=== PATIENT | male | born 1965 | race Caucasian/White ===

== ENCOUNTER 2016-08-22 14:24 | Inpatient (IN) | payer BC ==
--- NOTE | 2016-08-22 14:32 | EDPHY ---
H & P Stated Complaint: Panic Attack, "can't do anything anymore" Time Seen by Provider: 08/22/16 14:31 - Personal History Current Tetanus Diphtheria and Acellular Pertussis (TDAP): Yes - Medical/Surgical History Hx Asthma: No Hx Chronic Respiratory Disease: No Hx Diabetes: No Hx Cardiac Disease: No Hx Renal Disease: No Hx Cirrhosis: No Hx Alcoholism: No Hx HIV/AIDS: No Hx Splenectomy or Spleen Trauma: No Other PMH: Anxiety - Social History Smoking Status: Never smoked Constitutional: Initial Vital Signs Temperature (C) 37.4 C 08/22/16 14:27 Heart Rate 111 H 08/22/16 14:27 Respiratory Rate 18 08/22/16 14:27 Blood Pressure 156/105 H 08/22/16 14:27 O2 Sat (%) 98 08/22/16 14:27 O2 Delivery Mode Room Air Allergies/Adverse Reactions: No Known Allergies Allergy (Unverified 06/11/14 18:02) Home Medications: Medication Instructions Recorded NK [No Known Home Meds] 06/11/14 Medical Decision Making ED Course/Re-evaluation: CHIEF COMPLAINT: "I just suddenly lost it this afternoon" HISTORY OF PRESENT ILLNESS: The patient is a 50 y/o male, with a history of anxiety, arriving with his family complaining of worsening anxiety. He didn't sleep last night and went on a walk this morning and describes throwing wood "and it felt bloody marvelous." He says he then began hyperventilating and then later began crying uncontrollably. He reports he is under stress at work and recently had an argument with his that was "traumatic." He has previously had these symptoms when his insomnia is worse than normal. He is otherwise unable to provide a clear history secondary to his hysteria. REVIEW OF SYSTEMS: Difficult to determine due to patient's hysteria. PHYSICAL EXAM: HR, BP, O2 Sat, RR. Temp noted General Appearance: Alert, well hydrated, appropriate, and upset, tearful. Head: Atraumatic without scalp tenderness or obvious injury Eyes: Pupils equal, round, reactive to light and accommodation, EOMI, no trauma , no injection. Nose: Atraumatic, no rhinorrhea, clear. Throat: mucus membranes moist. Neck: Supple, nontender, no lymphadenopathy. Respiratory: No retractions, no distress, no wheezes, and no accessory muscle use. Lungs are clear to auscultation bilaterally. Cardiovascular: Tachycardic regular rate and rhythm, no murmurs, rubs, or gallops. Good capillary refill all extremities. Gastrointestinal: Abdomen is soft, nontender, non-distended, no masses, no rebound, no guarding, no peritoneal signs. Musculoskeletal: Normal active ROM of all extremities, atraumatic. Neurological: Alert, appropriate, and interactive. Nonfocal neuro exam. Skin: No rashes, good turgor, no nodules on palpation. Past medical history: Insomnia, anxiety, depression - Paxil, Lorazepam Past surgical history: denies Family history: Father of Alzheimer's Social history: Family at bedside. Employed. DIFFERENTIAL DIAGNOSIS: The differential diagnosis for the patient's anxiety included but was not limited to panic attack, anxiety, depression, insomnia, psychiatric diagnoses. MEDICAL DECISION MAKING: This is a 50 y/o male with a history of anxiety and insomnia who presents tearful and anxious reporting he had a mental break today. He reports his job is stressful and he had a recent argument with his in the setting of worsening insomnia. Further history is difficult to obtain secondary to his hysteria. Plan for standard psychiatric labs and psychiatric team evaluation. Mallory from [facility] assessed patient. She states in addition to the insomnia and stress, he is having memory issues and his father of Alzheimer 's. She reports he also endorses suicidal ideations and she recommends inpatient admission. - Data Points Laboratory Results: Laboratory Results 08/22/16 15:02 08/22/16 15:02 08/22/16 08/22/16 08/22/16 15:13 15:02 15:02 WBC 10.56 10^3/uL H 10^3/uL (3.80-9.50) RBC 5.43 10^6/uL 10^6/uL (4.40-6.38) Hgb 15.2 g/dL g/dL (13.7-17.5) Hct 44.0 % % (40.0-51.0) MCV 81.0 fL L fL (81.5-99.8) MCH 28.0 pg pg (27.9-34.1) MCHC 34.5 g/dL g/dL (32.4-36.7) RDW 13.0 % % (11.5-15.2) Plt Count 235 10^3/uL 10^3/uL (150-400) MPV 12.1 fL H fL (8.7-11.7) Neut % (Auto) 77.9 % H % (39.3-74.2) Lymph % (Auto) 13.7 % L % (15.0-45.0) Bureau % (Auto) 7.2 % % (4.5-13.0) Eos % (Auto) 0.4 % L % (0.6-7.6) Baso % (Auto) 0.5 % % (0.3-1.7) Nucleat RBC Rel Count 0.0 % % (0.0-0.2) Absolute Neuts (auto) 8.23 10^3/uL H 10^3/uL (1.70-6.50) Absolute Lymphs (auto) 1.45 10^3/uL 10^3/uL (1.00-3.00) Absolute Monos (auto) 0.76 10^3/uL 10^3/uL (0.30-0.80) Absolute Eos (auto) 0.04 10^3/uL 10^3/uL (0.03-0.40) Absolute Basos (auto) 0.05 10^3/uL 10^3/uL (0.02-0.10) Absolute Nucleated RBC 0.00 10^3/uL 10^3/uL (0-0.01) Immature Gran % 0.3 % % (0.0-1.1) Immature Gran # 0.03 10^3/uL 10^3/uL (0.00-0.10) Sodium 138 mEq/L mEq/L (134-144) Potassium 3.6 mEq/L mEq/L (3.5-5.2) Chloride 106 mEq/L mEq/L (97-110) Carbon Dioxide 16 mEq/l L mEq/l (22-31) Anion Gap 16 mEq/L mEq/L (8-16) BUN 16 mg/dL mg/dL (7-23) Creatinine 0.8 mg/dL mg/dL (0.7-1.3) Estimated GFR > 60 Glucose 115 mg/dL H mg/dL (70-100) Calcium 10.5 mg/dL H mg/dL (8.5-10.4) Salicylates < 1.0 mg/dL L mg/dL (2.0-20.0) Urine Opiates Screen NEGATIVE (NEGATIVE) Acetaminophen < 10 mcg/mL L mcg/mL (10.0-30.0) Urine Barbiturates NEGATIVE (NEGATIVE) Ur Phencyclidine Scrn NEGATIVE (NEGATIVE) Ur Amphetamine Screen NEGATIVE (NEGATIVE) U Benzodiazepines Scrn NEGATIVE (NEGATIVE) Urine Cocaine Screen NEGATIVE (NEGATIVE) U Marijuana (THC) Screen NEGATIVE (NEGATIVE) Ethyl Alcohol < 10 mg/dL mg/dL (0-10) Departure - Departure Clinical Impression: Panic attack Depression Qualifiers: Depression Type: other depression Qualified Code(s): F32.89 - Other specified depressive episodes Condition: Fair Referrals: RIGO GATES [Primary Care Provider] - As per Instructions Report Scribed for: Luis Graves Report Scribed by: Arianne Jones Date of Report: 08/22/16 Time of Report: 14:51
[2016-08-22 15:14] LABS: % IMMATURE GRANULYOCYTES 0.3 % (0.0-1.1); ABSOLUTE IMMATURE GRANULOCYTES 0.03 10^3/uL (0.00-0.10); ADD DIFF? NO; ADD MORPH? NO; ADD SCAN? NO; ATYPICAL LYMPHOCYTE FLAG 10 (0-99); FRAGMENT RBC FLAG 0 (0-99); HEMOGLOBIN 15.2 g/dL (13.7-17.5); LEFT SHIFT FLG 0 (0-99); LIPEMIA HEMOLYSIS FLAG 90 (0-99); MEAN CELL HEMOGLOBIN CONCENTR. 34.5 g/dL (32.4-36.7); MEAN PLATELET VOLUME 12.1 fL (8.7-11.7); PLATELET CLUMPS FLAG 0 (0-99); PLATELET COUNT 235 10^3/uL (150-400); RED BLOOD CELL COUNT 5.43 10^6/uL (4.40-6.38)
[2016-08-22 15:29] LABS: ANION GAP 16 mEq/L (8-16); CALCIUM 10.5 mg/dL (8.5-10.4); CARBON DIOXIDE 16 mEq/l (22-31); CHLORIDE 106 mEq/L (97-110); CREATININE 0.8 mg/dL (0.7-1.3); ETHANOL SERUM < 10 mg/dL (0-10); GLOMERULAR FILTRATION RATE > 60; GLUCOSE 115 mg/dL (70-100); POTASSIUM 3.6 mEq/L (3.5-5.2); SALICYLATE < 1.0 mg/dL (2.0-20.0); SODIUM 138 mEq/L (134-144)
[2016-08-22] MEDS ORDERED: LORazepam 1 MG TAB PO ONE (16:27)
[2016-08-22] MEDS ORDERED: NICOTINE POLACRILEX 2 MG GUM B PRN (22:17)
[2016-08-22] MEDS ORDERED: MAGNESIUM HYDROXIDE 30 ML UDCUP PO PRN (22:17)
[2016-08-22] MEDS ORDERED: MAG HYDROX/AL HYDROX/SIMETH 30 ML UDCUP PO PRN (22:17)
[2016-08-22] MEDS ORDERED: LORazepam 0.5 MG TAB PO PRN (22:17)
[2016-08-22] MEDS ORDERED: ACETAMINOPHEN 325 MG TAB PO PRN (22:17)
[2016-08-22 22:36] VITALS: O2SAT 95
--- NOTE | 2016-08-23 08:10 | PDGENHP ---
History and Physical History and Physical: CC: Anxiety attack History: This patient with a long hx of anxiety/panic disorder and depression has had increased work stress and relationship issues recently. Last evening he had a severe panic episode that did not settle, leading to a visit to ER and now admission to [facility]. He has had previous similar episodes but this one was perhaps his worst. Has been on antidepressant for around [address], infrequent low volume EtoH. Has a daughter with anxiety disorder as well He does exercise frequently PMH: Panic disorder Anxiety disorder Depression ROS: no other physical symptoms on a 10 system review Social , lives with no tobacco, drjugs or Etoh Vitals: Initial pulse was rapin on arrival to ER but normal since then no fever, otherwise nl Exam: alert oriented relaxed at present no tremor skin warm dry no rash no adenopathy no goiter resps easy lungs clear heart regular abd nl no edema joints nl no bleeding or bruising speech, language, motor, gait all nl DIAGNOSES: 1- PANIC/ANXIETY ATTACK w history of same 2. DEPRESSION on medication RECOMMENDATIONS: -Check TSH and hormone levels, particularly since he had tachycardia at presentation -no other medical recommendations at present; call if furhter help needed.
[2016-08-23] MEDS ORDERED: PARoxetine HCL 20 MG TAB PO SCH (09:00)
[2016-08-23] MEDS: PRAVASTATIN SODIUM 40 MG TAB PO SCH (09:27)
[2016-08-23] MEDS: BENAZEPRIL HCL 20 MG TAB PO SCH (09:27)
--- NOTE | 2016-08-23 13:50 | BAPA ---
[f rep st] ADMISSION PSYCHIATRIC ASSESSMENT DATE OF SERVICE: 08/23/2016 CHIEF COMPLAINT: "I just fell apart." HISTORY OF PRESENT ILLNESS: The patient is a 50-year-old male with a history of depressio n and anxiety dating back to 1995. He states that he has had episodic periods where he will suddenl y become overwhelmed, typically by social circumstances. In 1995, he was going through divorce and a stated that he became extremely emotional, crying, anxious, and unable to function. He saw a psyc hiatrist at that time and was started on Serzone. He states that this did not agree with him, thoug h he cannot remember what happened, and he was switched to Paxil. He felt calmer with Paxil and has taken it regularly to this state. He notes, however, that over the last several years, he has been having more episodes of this decompensation of anxiety. In the past 4 months, he has had 3 such ep isodes, which is very unusual for him as he believes he has only had about 12 total episodes in 22 y ears. Recently, he states that he was having some degree of conflict with his and that she gerardo d him she needed some time to herself. She wanted to go for 3 or 4 days out of town where she could relax. He was very supportive of this, but at the same time states that he began into a familiar p attern of excessive worry and catastrophizing. He states that he was before and , a nd was afraid that his was going to leave him. He believed that these thoughts were irrational , but they continued to bother him. His sleep began to erode, as is also a familiar pattern with mi dcycle awakening and excessive REM intrusion. He also then began awakening between 4:00 and 5:00 a. m. and being unable to go to sleep. His mood deteriorated, and he felt subjectively depressed and b annalise having thoughts of suicide. He states "I wouldn't actually kill myself. I just believe people would be better off without me or I would be better off if I was ." On the day of admission, janelle tapia states that he had a particularly bad morning, was very anxious and began shaking. He went outsid e, took a piece of firewood and was beating on the pile of firewood, but this did not make him feel better. He then told his neighbor, who drove him and his daughter to the emergency department. He states on the drive to the emergency department, he sobbed continuously. While this is unusual for him, he states he felt better. In the emergency department, he described to the attending ER physic saray and to the [facility] staff that he was feeling like he was falling apart and that he was not in contro l of his mind. He stated that he also was having thoughts of suicide. He was placed on an M1 hold and admitted for further evaluation. Today, he states he does feel better, though he is very worrie d that this pattern is escalating and that he believes his underlying anxiety is worsening for reaso ns he cannot understand. His biggest concern at this time is the ongoing anxiety and his vulnerabil ity to these attacks. PAST PSYCHIATRIC HISTORY: The patient has taken Paxil for 22 years. Before that, he briefly took S erzone which he states was ineffective and had some negative affects. He saw Dr. Carvalho in the [facility], but has not seen him for 2 years. He is not currently in any active therapies of any kind. His primary care physician prescribes his Paxil, as well as lorazepam or diazepam as needed to help with his sleep. He also prescribed some Ambien, which he took last week with minimal benefit. The cassie ent has never had a suicide attempt or psychiatric hospitalization. ALLERGIES: No known medical allergies. CURRENT MEDICATIONS: Include Paxil 40 mg daily, amlodipine 10 mg daily, Lotensin 20 mg daily, and l ovastatin 40 mg daily. PAST MEDICAL HISTORY: Significant for obstructive sleep apnea, for which he wears a dental applianc e, hypertension, and hypertriglyceridemia. SOCIAL HISTORY: The patient has been for 8 years. This is his second marriage. They have twin 8-year-old children who are male and female fraternal twins. 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 He is originally from [place] and has been in the [place] for over 20 years. He enjoys cycling, hiking, and spending time with his family. There are no substance use issues not ed. There are no other acute financial or legal stresses noted. SUBSTANCE ABUSE HISTORY: The patient does not use substances. FAMILY HISTORY: The patient has 3 sisters who are all treated for depression and anxiety. ADMISSION LABORATORY: CBC shows a white count of 10.56, with neutrophils of 77.9%. Serum chemistri es show a nonfasting glucose of 115 and calcium of 10.5. TSH is normal at 2.3. Free T4 is normal a t 1.75, and free T3 is normal at 4.51. Urine drug screen is negative for all substances. Alcohol i s less than detectable. MENTAL STATUS EXAMINATION: Reveals a healthy-appearing, adequately groomed male. He is p leasant and cooperative, and interacts appropriately with the examiner. His affect is somewhat cons tricted and anxious, though appropriate and stable. His mood was described as "depressed and anxiou s." His thought process is linear and goal-directed. His thought content reveals no evidence of ps ychosis. He is alert and oriented to person, place, time, and situation, and his sensorium is clear . He currently denies any thoughts of suicide, stating that he had the thoughts that were "based in my deepest despair." The patient's intellect appears to be above average, as evidenced by his educ ational and occupational history, his fund of knowledge, and vocabulary. His insight and judgment a ppear to be good. IMPRESSION: Anxiety disorder, not otherwise specified, with characteristics of social phobia, obses sive-compulsive anxiety, panic, and generalized anxiety. Depressive disorder, not otherwise specifi ed, possibly attendant to the anxiety disorder. Marital conflict. Work stress. Recurrent illness. The patient is a 50-year-old male with a long-standing sensitivity to stress expressed as intermittent episodes of feeling overwhelmed and having intense anxiety. This is further characteri zed by intense REM and midcycle sleep intrusion. He has treated it effectively over time with the P axil as the baseline therapy and a benzodiazepine when he gets into a cycle to stabilize sleep to pr event further decompensation. It appears that the Paxil has been less effective over the last year or more, and this would not be unheard of given that he has had 22 years of continuous benefit witho ut any burnout. I have discussed with him potential options for ongoing treatment. He is agreeable to switching to citalopram starting tomorrow and using clonazepam as a REM suppressant on an interm ittent basis. The risks, benefits, and alternatives of these therapies were discussed with him, and he agrees to proceed. ESTIMATED LENGTH OF STAY: 2-3 days. /[id number]/MODL
[2016-08-23] MEDS ORDERED: clonazePAM 0.5 MG TAB PO SCH (21:00)
[2016-08-24 06:20] VITALS: BP 151/96; PULSE 85; RESP 16; TEMP 98.2
[2016-08-24] MEDS: PRAVASTATIN SODIUM 40 MG TAB PO SCH (08:14)
[2016-08-24] MEDS: BENAZEPRIL HCL 20 MG TAB PO SCH (08:14)
[2016-08-24] MEDS ORDERED: CITALOPRAM 20 MG TAB PO SCH (09:00)
--- NOTE | 2016-08-27 14:08 | BDS ---
[f rep st] BEHAVIORAL HEALTH DISCHARGE SUMMARY REASON FOR ADMISSION: Patient is a 50-year-old, male, with a history of depression and an xiety for the past 20 years. He states this was typically under good control, taking Paxil 40 mg, b ut that he has noticed it being less effective over the last several years. Specifically, over the last several months, he has had at least 3 episodes of severe anxiety that have emerged with rather minor inciting factors. On the date of this admission, he had a discussion with his who left t own to have some time alone, and he had catastrophic fears that she was going to leave him. This le d to uncontrollable crying and severe anxiety, and he came to the emergency department. They were u nable to console him and felt like he was a danger to himself because of some suicidal thoughts he w as having and he was [facility] for further evaluatio n and treatment. A full description of the events preceding admission can be found in his admission history dated 08/23/2016. ADMITTING DIAGNOSES: Anxiety disorder, not otherwise specified, with characteristics of social phob ia, obsessive-compulsive anxiety, panic and generalized anxiety, depressive disorder, not otherwise specified, possibly attendant to the anxiety disorder, marital conflict, work stress and recurrent i llness. ADMITTING PHYSICAL EXAMINATION: Performed by Dr. Cyrus Cohen, showed no acute physical findings. ADMISSION LABORATORY: CBC showed a white count of 10.56 with neutrophil percentage up at 77.9%. Se rum chemistries showed no significant abnormalities. Urine drug screen was negative for all substan ginna. Alcohol is less than detectable. HOSPITAL COURSE: Patient was admitted to the behavior health services inpatient unit on an M1 hold. I saw him on the first morning of his admission and he was pleasant, cooperative and engaging. He states that he felt much better, having just been in the hospital and was interested in looking at his medication regimen, as he believes it was not working. He had been on the Paxil since 1995 and stated that it had typically been affective and he had only had maybe 10 episodes of anxiety over th e next 20 years. He stated, however, that since April of 2016, he has had 3 major attacks and fe els like he is on the verge of having attacks all the time. I discussed with him the possibility th at the Paxil was ineffective due to the serotonin burnout syndrome and that a switch to an alternati ve SSRI would possibly benefit him. We discussed the options and he agreed to switch to Celexa, whi ch was started at 40 mg in a direct crossover. He tolerated this well with no side effects and no e vidence of withdrawal over the brief monitoring. The patient was otherwise engaged in individual, group, and milieu psychotherapies and participated actively in all of these. He repeatedly disavowed any thoughts of suicide, stating that he was just feeling overwhelmed and had no intention to harm himself. He requested discharge on the second day of admission, and I felt like he was stable and appropriate to leave. He had a previous relat ionship with Dr. Carvalho and stated that he had called him to arrange an appointment prior to coming to the hospital. CONDITION ON DISCHARGE: Stable. The patient's affect was much brighter, calmer, and he is having n o thoughts of suicide. He was forward thinking and hopeful and stated that he felt relieved by the fact that we had a plan. DISCHARGE MEDICATIONS: Citalopram 40 mg daily, lovastatin 40 mg daily, Norvasc 10 mg daily, Lotensi n 20 mg daily, clonazepam 0.5 mg at bedtime. DISPOSITION: Patient left the hospital of his own recognizance to return to his home. FOLLOWUP: With Dr. Carvalho to be scheduled by the patient on the day after discharge, as it is a Tracy nday. LEGAL COURSE: The patient was discharged prior to the expiration of his M1 hold. /[id number]/MODL
== END 2016-08-24 13:20 | disposition home or self-care (01) | DRG 880 ==
LOC: BBEH 22:03
PROVIDERS: ADMIT Psychiatry & Neurology Psychiatry; ATTEND Psychiatry & Neurology Psychiatry
DX: F41.0 Panic disorder [episodic paroxysmal anxiety] (principal); G47.00 Insomnia, unspecified; F32.9 Major depressive disorder, single episode, unspecified; G47.33 Obstructive sleep apnea (adult) (pediatric)
CPT/HCPCS: 80305; 84481-90; G0480

== ENCOUNTER 2016-11-01 09:11 | Inpatient (IN) | payer BC ==
--- NOTE | 2016-11-01 10:03 | EDPHY ---
H & P Smoking Status: Never smoked Time Seen by Provider: 11/01/16 09:31 HPI/ROS: CHIEF COMPLAINT: Suicidal thoughts, anxiety HISTORY OF PRESENT ILLNESS: This is a 50-year-old male presenting to the emergency department complaining of " horrible suicidal thoughts this morning, I actually thought about [place] the [place] and cutting my wrist" patient states he has not been sleeping well due to a lot of travel his sleep schedule is off he has had insomnia, this is a component of when his anxiety and suicidal thoughts arise. Patient's states he feels safe at this moment with his at bedside, but" I seem to have these intermittent suicidal thoughts arise". Patient has switched to a new therapist which is Dr. Carvalho, but he is out of town for 2 weeks unable to get hold of him, his Klonopin and Celexa "not effectively working for me right now"" I feel if I go home something bad might happen" REVIEW OF SYSTEMS: Constitutional: No fever, no chills. Eyes: No discharge. Horrible suicidal thoughts this morning, ENT: No sore throat. Cardiovascular: No chest pain, no palpitations. Respiratory: No cough, no shortness of breath. Gastrointestinal: No abdominal pain, no vomiting. Genitourinary: No hematuria. Musculoskeletal: No back pain. Skin: No rashes. Neurological: No headache. (Tasneem Lyman) Physical Exam: General Appearance: Alert, no distress. HEENT: Pupils equal and round no pallor or injection. Mucous membranes moist. Respiratory: There are no retractions, lungs are clear to auscultation. Cardiovascular: Regular rate and rhythm. Gastrointestinal: Abdomen is soft and nontender, no masses, bowel sounds normal. Neurological: No focal deficits. Answering questions appropriately Skin: Warm and dry, no rashes. Musculoskeletal: Neck is supple nontender. Extremities: symmetrical, full range of motion. Psychiatric: Patient is oriented X 3, there is no agitation. Flat affect (Tasneem Lyman) Constitutional: Initial Vital Signs Temperature (C) 36.6 C 11/01/16 09:29 Heart Rate 78 11/01/16 09:29 Respiratory Rate 16 11/01/16 09:29 Blood Pressure 138/90 H 11/01/16 09:29 O2 Sat (%) 97 11/01/16 09:29 O2 Delivery Mode Room Air O2 (L/minute) 96 Allergies/Adverse Reactions: No Known Allergies Allergy (Unverified 06/11/14 18:02) Home Medications: Medication Instructions Recorded Lovastatin 40 mg PO DAILY 08/22/16 Benazepril HCl [Lotensin (*)] 20 mg PO DAILY #0 tab 08/24/16 Citalopram Hydrobromide [Celexa] 40 mg PO DAILY #30 tablet 08/24/16 amLODIPine BESYLATE [Norvasc 10 mg 10 mg PO DAILY #0 tab 08/24/16 (*)] LORazepam [Ativan (*)] 1 mg PO HS PRN 11/01/16 Zolpidem Tartrate [Ambien 10 mg] 10 mg PO HS PRN 11/01/16 clonazePAM [Klonopin (*)] 0.5 mg PO HS PRN 11/01/16 Medical Decision Making ED Course/Re-evaluation: Discussed ED plan of care: CBC, BMP, urine drug tox, psych evaluation 1035: Medically cleared for psych. [facility] notify 1440: This discussed patient plan with Jo ([facility]). After their evaluation recommended patient placed on M1 hold, will be looking for a bed for placement at [address] [place] [address]. Patient at this time and denies any SI or HPI, resting comfortably , not in any distress. Patient is aware and agrees with plan "I would like to be admitted" (Tasneem Lyman) Differential Diagnosis: Other differential diagnosis considered but not limited to pedro, psychosis, and homicidal (Tasneem Lyman) Other Provider: PHYSICIAN DOCUMENTATION: The patient was evaluated and managed by the nurse practitioner. My co- signature indicates that I have reviewed this chart and I agree with the findings and plan of care as documented. I am the secondary supervising physician. (Jt Ivey) - Data Points Laboratory Results: Laboratory Results 11/01/16 10:10 11/01/16 10:10 11/01/16 11/01/16 11/01/16 10:10 10:10 10:10 WBC 6.31 10^3/uL 10^3/uL (3.80-9.50) RBC 5.10 10^6/uL 10^6/uL (4.40-6.38) Hgb 14.5 g/dL g/dL (13.7-17.5) Hct 42.7 % % (40.0-51.0) MCV 83.7 fL fL (81.5-99.8) MCH 28.4 pg pg (27.9-34.1) MCHC 34.0 g/dL g/dL (32.4-36.7) RDW 12.9 % % (11.5-15.2) Plt Count 180 10^3/uL 10^3/uL (150-400) MPV 11.9 fL H fL (8.7-11.7) Neut % (Auto) 67.8 % % (39.3-74.2) Lymph % (Auto) 18.7 % % (15.0-45.0) [place] % (Auto) 11.6 % % (4.5-13.0) Eos % (Auto) 1.0 % % (0.6-7.6) Baso % (Auto) 0.6 % % (0.3-1.7) Nucleat RBC Rel Count 0.0 % % (0.0-0.2) Absolute Neuts (auto) 4.28 10^3/uL 10^3/uL (1.70-6.50) Absolute Lymphs (auto) 1.18 10^3/uL 10^3/uL (1.00-3.00) Absolute Monos (auto) 0.73 10^3/uL 10^3/uL (0.30-0.80) Absolute Eos (auto) 0.06 10^3/uL 10^3/uL (0.03-0.40) Absolute Basos (auto) 0.04 10^3/uL 10^3/uL (0.02-0.10) Absolute Nucleated RBC 0.00 10^3/uL 10^3/uL (0-0.01) Immature Gran % 0.3 % % (0.0-1.1) Immature Gran # 0.02 10^3/uL 10^3/uL (0.00-0.10) Sodium 139 mEq/L mEq/L (134-144) Potassium 4.3 mEq/L mEq/L (3.5-5.2) Chloride 105 mEq/L mEq/L (97-110) Carbon Dioxide 22 mEq/l mEq/l (22-31) Anion Gap 12 mEq/L mEq/L (8-16) BUN 14 mg/dL mg/dL (7-23) Creatinine 0.7 mg/dL mg/dL (0.7-1.3) Estimated GFR > 60 Glucose 104 mg/dL H mg/dL (70-100) Calcium 9.9 mg/dL mg/dL (8.5-10.4) Salicylates < 1.0 mg/dL L mg/dL (2.0-20.0) Urine Opiates Screen NEGATIVE (NEGATIVE) Urine Barbiturates NEGATIVE (NEGATIVE) Ur Phencyclidine Scrn NEGATIVE (NEGATIVE) Ur Amphetamine Screen NEGATIVE (NEGATIVE) U Benzodiazepines Scrn NEGATIVE (NEGATIVE) Urine Cocaine Screen NEGATIVE (NEGATIVE) U Marijuana (THC) Screen NEGATIVE (NEGATIVE) Ethyl Alcohol < 10 mg/dL mg/dL (0-10) Departure - Departure Disposition: [facility] IP Clinical Impression: Suicidal ideation, Severe major depression Condition: Good Referrals: RIGO GATES [Primary Care Provider] - As per Instructions
[2016-11-01 10:17] LABS: % IMMATURE GRANULYOCYTES 0.3 % (0.0-1.1); ABSOLUTE IMMATURE GRANULOCYTES 0.02 10^3/uL (0.00-0.10); ADD DIFF? NO; ADD MORPH? NO; ADD SCAN? NO; ATYPICAL LYMPHOCYTE FLAG 10 (0-99); FRAGMENT RBC FLAG 0 (0-99); HEMATOCRIT 42.7 % (40.0-51.0); HEMOGLOBIN 14.5 g/dL (13.7-17.5); LEFT SHIFT FLG 0 (0-99); LIPEMIA HEMOLYSIS FLAG 90 (0-99); MEAN CELL HEMOGLOBIN 28.4 pg (27.9-34.1); MEAN CELL VOLUME 83.7 fL (81.5-99.8); MEAN PLATELET VOLUME 11.9 fL (8.7-11.7); PLATELET CLUMPS FLAG 0 (0-99); PLATELET COUNT 180 10^3/uL (150-400); RED CELL DISTRIBUTION WIDTH 12.9 % (11.5-15.2)
[2016-11-01 10:39] LABS: ANION GAP 12 mEq/L (8-16); CALCIUM 9.9 mg/dL (8.5-10.4); CARBON DIOXIDE 22 mEq/l (22-31); CHLORIDE 105 mEq/L (97-110); CREATININE 0.7 mg/dL (0.7-1.3); ETHANOL SERUM < 10 mg/dL (0-10); GLOMERULAR FILTRATION RATE > 60; GLUCOSE 104 mg/dL (70-100); POTASSIUM 4.3 mEq/L (3.5-5.2); SALICYLATE < 1.0 mg/dL (2.0-20.0); SODIUM 139 mEq/L (134-144)
[2016-11-01] MEDS ORDERED: MAGNESIUM HYDROXIDE 30 ML UDCUP PO PRN (20:35)
[2016-11-01] MEDS ORDERED: LORazepam 0.5 MG TAB PO PRN (20:35)
[2016-11-01] MEDS ORDERED: ACETAMINOPHEN 325 MG TAB PO PRN (20:35)
[2016-11-01] MEDS ORDERED: MAG HYDROX/AL HYDROX/SIMETH 30 ML UDCUP PO PRN (20:35)
[2016-11-01] MEDS ORDERED: NICOTINE POLACRILEX 2 MG GUM B PRN (20:35)
[2016-11-01] MEDS ORDERED: clonazePAM 0.5 MG TAB PO PRN (20:37)
[2016-11-01] MEDS ORDERED: OLANZapine 5 MG TAB PO PRN (20:37)
[2016-11-01] MEDS ORDERED: BENAZEPRIL HCL 20 MG TAB PO SCH (20:45)
[2016-11-01] MEDS: BENAZEPRIL HCL 10 MG TAB PO SCH (20:56)
[2016-11-02] MEDS ORDERED: QUEtiapine FUMARATE 25 MG TAB PO PRN (08:58)
[2016-11-02] MEDS: CITALOPRAM 20 MG TAB PO SCH (09:27)
[2016-11-02] MEDS: BENAZEPRIL HCL 10 MG TAB PO SCH (09:27)
--- NOTE | 2016-11-02 13:20 | BAPA ---
[f rep st] ADMISSION PSYCHIATRIC ASSESSMENT DATE OF SERVICE: 11/02/2016 CHIEF COMPLAINT: "I just couldn't take it anymore." HISTORY OF PRESENT ILLNESS: Patient is a 50-year-old male who presented to the emergency department of his own accord requesting help due to lack of sleep, intense anxiety, and thoughts of suicide. He stated that after his discharge from this facility on 08/24/2016, he did quite well for about a month. He was changed from Paxil to Celexa at that time and followed up with his outpatient psychiatrist, Dr. Carvalho. He states that Dr. Carvalho increased it recently to 50 mg in hopes of helping with some ongoing discontinuous sleep and increasing anxiety. He has a history of recurrent perseverative anxiety and catastrophic thinking that has been off and on for a number of years but has been worse over the last 6 months. The Celexa seemed to help with this until he had some sleep disruption at the end of September. He states that he had a GI virus that caused him to have some disrupted sleep but this improved. He then went to [place] on October 08, and stayed there for 2 weeks. He states while there it was somewhat stressful in traveling and he was irritable and began waking up between 2 and 3 in the morning. He states over the next several weeks this pattern got worse and he also began to experience some "ups and downs." He states that he would be in his normal state of mental health but then feel rather precipitous decline into feeling "very depressed and having dark thoughts." He states he then would come back to normal within a day or 2 but that this would repeat itself. The dark thoughts and depressed days were linked to nights in which he did not sleep well. He began taking clonazepam but states that this did not help. He reports at least 1 episode where he felt his mood was elevated, and he was very excited, talkative, and felt particularly good. He states that this lasted for only about a day and had no specific relationship to events. He states that yesterday he woke up after sleeping poorly and felt "severe despair." He states that he had woken up at 3 in the morning, was unable to go back to sleep and began to feel anxious and upset that he "would never get any better." He took an additional clonazepam which was not helpful and he is feeling more frustrated. He states that he began to feel there was "no hope" and had thoughts of driving into the mountains and jumping off a renato or killing himself in another way such as with an overdose. He then presented to the emergency department requesting evaluation and treatment. PAST PSYCHIATRIC HISTORY: Patient took Paxil for over 20 years until switching to the Celexa in August. The course of that treatment is noted above. He is taking benzodiazepines off and on as well as Ambien also in the past. He has never had an actual suicide attempt. He had one previous psychiatric hospitalization at this facility from 08/22 to 08/24/2016. He sees Dr. Carvalho outpatient, is not currently engaged with a therapist. ALLERGIES: No known medical allergies. CURRENT MEDICATIONS: Amlodipine 10 mg daily, Lotensin 20 mg daily, lovastatin 40 mg daily, Celexa 50 mg daily, though he held it the last 2 days. PAST MEDICAL HISTORY: Significant for obstructive sleep apnea, for which he wears a dental appliance, hypertension and hypertriglyceridemia. SOCIAL HISTORY: The patient has been for 8 years. Second marriage. They have twin 8-year-old children who are male and female fraternal twins. 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 He is originally from [place]. Has been in the [place] for over 20 years. He enjoys cycling, hiking and spending time with his family. The marriage did experience some stress over the last 6 months but he states this is much better at this time. He has no substance use issues. He denies other stresses. SUBSTANCE ABUSE HISTORY: Noncontributory. FAMILY HISTORY: The patient states he has 3 sisters all treated for depression and anxiety. ADMISSION LABORATORIES: CBC is normal. Serum chemistries are normal. Urine drug screen shows no substances. MENTAL STATUS EXAMINATION: Reveals an adequately groomed, casually and appropriately dressed male. He interacts well with the examiner, displaying good eye contact. Overall calm and pleasant demeanor. His affect is constricted, somewhat anxious and mildly dysphoric. His mood is described as "not very good." His thought process is linear and goal directed. His thought content reveals no evidence of psychosis. He is alert and oriented to person, place, time, and situation. His sensorium is clear. His intellect appears to be average to above average as evidenced by his occupational, educational history, his fund of knowledge, vocabulary. He denies current active thoughts of suicide though states that he was concerned for his safety yesterday. His insight and judgment appear to be good. IMPRESSION: Mood disorder, not otherwise specified. Possible bipolar type 2. Chronic sleep disorder possibly related to a combination of his sleep apnea and his excessive REM. Anxiety disorder not otherwise specified with characteristics of social phobia, obsessive-compulsive anxiety, panic and generalized anxiety. The patient is a 50-year-old male who presents at this time with recurrence of intense anxiety in the setting of also having some fluctuating moods while taking an antidepressant. It is unclear whether this meets the criteria for a true bipolar illness though at the same time it is certainly notable in context. His sleep has been correlated with his anxiety since I have been working with him and both seem to be dysregulated at this time. I reviewed with him several options for further management of this focusing on the desire to continue the serotonin selective antidepressant as the best means of controlling his multiple symptom anxiety disorder. I suggest we add a mood stabilizer to this and discussed both the MIGUEL active anticonvulsants such as Lamictal and Depakote or an atypical antipsychotic. He agrees to a trial of Seroquel at bedtime to help with sleep and hopefully augment the antidepressant as well as provide some mood stabilizing influence. The risks, benefits, and alternatives to this were discussed and he agrees to proceed. We will start at 100 mg at h.s. on a scheduled basis and 25 mg every 4 hours as needed for anxiety. We will further engage him in individual, group, and milieu psychotherapies and consider family therapy if his is interested in participating. At the last hospitalization, she was out of town. I will communicate with Dr. Carvalho tomorrow and get his take on the plan. Estimated length of stay is 3-5 days. /[id number]/MODL MTDD
[2016-11-02] MEDS: QUEtiapine FUMARATE 100 MG TAB PO SCH (21:27)
[2016-11-03 06:44] VITALS: RESP 14
[2016-11-03] MEDS: CITALOPRAM 20 MG TAB PO SCH (09:07)
[2016-11-03] MEDS: BENAZEPRIL HCL 10 MG TAB PO SCH (09:07)
--- NOTE | 2016-11-03 13:21 | SOAPPROG ---
SOAP Progress Note Assessment/Plan: Assessment: Plan: 11/03/16 13:21 Doing better with Seroquel. Will CCM. Likely d/c tomorrow if all is well. Subjective: Pt seen, discussed with staff. Reports feeling "much better" today. Slept well last night with Seroquel. Got eight hours of continuous sleep. No SE's noted. Overall anxiety is better. Less perseverative. Participating actively in all therapies. Objective: Vital Signs Temp Pulse Resp BP Pulse Ox 36.6 C 55 L 14 135/77 H 96 11/03/16 06:00 11/03/16 06:00 11/03/16 06:00 11/03/16 09:11 11/03/16 06:00 MSE: Calmer, coop. Affect is constricted, stable. Mood is "better." TP linear. TC reveals no psychosis. No active SI, more hopeful. - Time Spent With Patient Time Spent With Patient: 25" - Pending Discharge Pending Discharge Within 24 Hours: Yes Pending Discharge Date: 11/04/16 Pending Discharge Time: 11:00 ICD10 Worksheet Patient Problems: Problems Problem Status Onset Severe major depression Acute Suicidal ideation Acute Depression Acute Panic attack Acute
[2016-11-03] MEDS: QUEtiapine FUMARATE 100 MG TAB PO SCH (21:03)
[2016-11-04 06:26] VITALS: PULSE 75; TEMP 97.9; O2SAT 95
[2016-11-04] MEDS: BENAZEPRIL HCL 10 MG TAB PO SCH (08:31)
[2016-11-04] MEDS: CITALOPRAM 20 MG TAB PO SCH (08:32)
[2016-11-04 08:34] VITALS: BP 137/90
== END 2016-11-04 13:20 | disposition home or self-care (01) | DRG 885 ==
LOC: BBEH 18:50
PROVIDERS: ADMIT Psychiatry & Neurology Psychiatry; ATTEND Psychiatry & Neurology Psychiatry
DX: F39 Unspecified mood [affective] disorder (principal); G47.33 Obstructive sleep apnea (adult) (pediatric); I10 Essential (primary) hypertension
CPT/HCPCS: 80305; G0480

== ENCOUNTER 2018-05-07 14:04 | Emergency (ER) | payer BC ==
--- NOTE | 2018-05-07 14:55 | EDPHY ---
H & P Stated Complaint: dizzy episodes on and off since 05/05-bumped head 05/03 Time Seen by Provider: 05/07/18 14:30 HPI/ROS: CHIEF COMPLAINT: Dizziness, off balance, mild confusion since hitting head HISTORY OF PRESENT ILLNESS: This is a 52-year-old male who presents concerned about intermittent dizziness, feeling of being off balance, and some mild confusion. He struck the top of his head for nights ago. He was outside, stood up quickly, and hit the top of his head on a tree. He did not lose consciousness. He thought that he was okay the following day but the day after that he became dizzy. He describes this as an off balance and lightheaded feeling. It persisted throughout the day. Is somewhat better today but continues. He denies headache. He does not have any visual changes, numbness, or weakness. He does note that he is not thinking as clearly as usual. He left a book behind today and he also made a wrong turn when he was driving here. He states that these are unusual behaviors for him. REVIEW OF SYSTEMS: A ten system review of systems was performed and is negative with the exception of the items mentioned in the HPI. Past medical history: 1. Depression Nerve 2. Hypertension 3. Obstructive sleep apnea Social history: He is originally from [place]. Lives with his and 2 children. 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 No tobacco use. Rare alcohol use. General Appearance: Alert. Vital signs reviewed. Head: There is an abrasion on the top of his head. Eyes: Pupils equal and round, no conjunctival injection, no discharge. Anicteric. ENT, Mouth: Mucous membranes are moist, no oropharyngeal erythema or edema. Neck: No lymphadenopathy, supple. Respiratory: Lungs are clear to auscultation; no wheezes, rales, or rhonchi. Cardiovascular: Regular rate and rhythm; no murmur, rub, or gallop. Gastrointestinal: Abdomen is soft and nontender, no masses or organomegaly, bowel sounds normal. Skin: Warm and dry, no rashes on exposed skin, normal color. Back: Nontender to palpation over the thoracolumbar spine. No CVAT. Extremities: No lower extremity edema, no calf tenderness or swelling. Neurological: Alert and oriented. Moving all four extremities easily and equally. Cranial nerves II through XII are examined and are intact (visual acuity not tested). Strength is 5 over 5 bilaterally with testing of all major motor groups. Sensation is intact to light touch over all 4 extremities. Deep tendon reflexes are 2+ in the biceps and knees bilaterally. Gait is normal. [id number]-[id number] is performed accurately. Psychiatric: Normal affect. - Medical/Surgical History Hx Asthma: No Hx Chronic Respiratory Disease: No Hx Diabetes: No Hx Cardiac Disease: No Hx Renal Disease: No Hx Cirrhosis: No Hx Alcoholism: No Hx HIV/AIDS: No Hx Splenectomy or Spleen Trauma: No Other PMH: htn, yazmin, depression - Social History Smoking Status: Never smoked Constitutional: Initial Vital Signs Temperature (C) 36.7 C 05/07/18 14:09 Heart Rate 67 05/07/18 14:09 Respiratory Rate 16 05/07/18 14:09 Blood Pressure 139/90 H 05/07/18 14:09 O2 Sat (%) 97 05/07/18 14:09 O2 Delivery Mode Room Air Allergies/Adverse Reactions: No Known Allergies Allergy (Verified 05/07/18 14:07) Home Medications: Medication Instructions Recorded Amlodipine Besylate 05/07/18 Benazepril-Hctz 5-6.25 mg Tab 05/07/18 Effexor Xr 05/07/18 LORazepam 05/07/18 Remeron 05/07/18 Seroquel 05/07/18 Medical Decision Making - Diagnostics EKG Interpretation: 12 lead EKG is interpreted in [place] by emergency department physician. Sinus rhythm with a rate of 64 and nonspecific intraventricular conduction delay. ED Course/Re-evaluation: Head injury with signs and symptoms that suggest post concussive syndrome. He has had dizziness and some confusion. I have considered the various head injury rules concerning CT imaging--the [place] head injury CT criteria, the [place] criteria, and nexus II criteria. He does not fit into these categories but is quite concerned and feels that his behavior today-- forgetfulness and making a wrong turn-- is very unusual for him. He would like to proceed with CT scanning. CT scan of the brain was performed and was reported to me as negative/normal. I reviewed the images. He and I discussed post concussive syndrome. He is given Dr. Karla Smith as a referral should he have persistent difficulties. Differential Diagnosis: I considered a differential diagnosis that includes but is not limited to skull fracture, cervical spine injury, intracranial hemorrhage, and concussion. Departure - Departure Disposition: Home, Routine, Self-Care Clinical Impression: Post-concussion vertigo, Postconcussion syndrome Condition: Good Instructions: Post Concussion Syndrome (ED) Referrals: Karla Smith MD [Medical Doctor] - As per Instructions
[2018-05-07 15:38] VITALS: BP 134/92
--- NOTE | 2018-05-07 16:46 | CPEKG ---
Test Reason : OPEN Blood Pressure : / mmHG Vent. Rate : 064 BPM Atrial Rate : 065 BPM P-R Int : 162 ms QRS Dur : 117 ms QT Int : 407 ms P-R-T Axes : 071 062 065 degrees QTc Int : 420 ms Sinus rhythm Nonspecific intraventricular conduction delay Confirmed by Iggy Zimmer ([id number]) on 05/07/2018 4:46:39 PM Referred By: Confirmed By:Iggy Zimmer
== END 2018-05-07 15:39 | disposition home or self-care (01) ==
DX: F07.81 Postconcussional syndrome (principal); R42 Dizziness and giddiness; I10 Essential (primary) hypertension; F32.9 Major depressive disorder, single episode, unspecified; G47.33 Obstructive sleep apnea (adult) (pediatric)